=== PATIENT | female | born 1990 | race African-American/Black ===

== ENCOUNTER 2019-01-18 02:05 | Inpatient (IN) | payer OTHER ==
[2019-01-18] MEDS: ELECTROLYTE-148 SOLN 1,000 ML IV SCH ×2 (02:30→07:00)
[2019-01-18 02:41] VITALS: BMI 22.8
[2019-01-18] MEDS ORDERED: BUTORPHANOL TARTRATE 1 MG/ML VIAL IVPUSH ONE (02:52)
[2019-01-18] MEDS ORDERED: PROMETHAZINE HCL 25 MG/1 ML VIAL IVPUSH ONE (02:52)
--- NOTE | 2019-01-18 02:55 | PN ---
Progress Note (short form) - Note Progress Note: cx 2 cm, 80. vx -3 mr, clear, fhr cat 1, regular contraction, wants , aware of risks
--- NOTE | 2019-01-18 03:08 | HP ---
Past Medical History - Primary Care Physician PCP:: Janusz Kemp - Admission Chief Complaint: 38 weeks, previous c/s, rom, labor , request of History of Present Illness: 28 yo f ,one previous c/s for spinal bifida 38.4 weeks, c/o rom, clear fluid with contraction, cx 2 cm 80 vx -3 mr, fhr cat 1, regular contraction, requesting , risks of has been discussed with patient,repeat c/s also discussed History Source: Patient Limitations to Obtaining History: No Limitations - Past Medical History ...: 2 ...Para: 1 ...Term: 1 ...: 0 ...Spon : 0 ...Induced : 0 ...Multiple Gestation: 0 ...LMP: 04/21/18 ... Weeks Gestation by Dates: 38.6 ...EDC by Dates: 01/26/19 ...EDC by Sono: 01/28/19 Additional OB History: previous c/s for NTD - Past Surgical History Hx Myomectomy: No Hx Transabdominal Cerclage: No - Smoking History Smoking history: Never smoked Have you smoked in the past 12 months: No - Alcohol/Substance Use Hx Alcohol Use: No - Social History Usual Living Arrangement: Yes: With Spouse History of Recent Travel: No Home Medications - Allergies Allergies/Adverse Reactions: Allergies Allergy/AdvReac Type Severity Reaction Status Date / Time Gadolinium-Containing Allergy Intermediate Cough Verified 01/18/19 02:23 Contrast Medi - Home Medications Home Medications: Ambulatory Orders Folic Acid 1 mg PO DAILY 01/14/19 Vitamins (Sjr) - 1 tab PO DAILY 01/14/19 Physical Exam - Maternity Vital Signs: Vital Signs Temperature 98.5 F 01/18/19 02:29 Pulse Rate 84 01/18/19 02:29 Respiratory Rate 20 01/18/19 02:29 Blood Pressure 127/71 01/18/19 02:29 O2 Sat by Pulse Oximetry (%) Constitutional: Yes: Well Nourished, No Distress, Calm Eyes: Yes: WNL, Conjunctiva Clear, EOM Intact HENT: Yes: WNL, Atraumatic, Normocephalic Neck: Yes: WNL, Supple, Trachea Midline Cardiovascular: Yes: WNL, Regular Rate and Rhythm Breast(s): Yes: WNL - Abdominal Exam/OB Contractions: Yes Regularity: Irregular Monitor Mode: External Heart Rate Location: LLQ Accelerations: Uniform Decelerations: None - Vaginal Exam/OB Vaginal Bleediing: No Speculum Exam: No Dilatation (cm): 2 cm Effacement (%): 80 Amniotic Membrane Status: Ruptured Nitrazine Test: Positive Amniotic Fluid: Yes: Clear Presentation: Vertex/Position Station: -3 - Physical Exam Musculoskeletal: Yes: WNL Extremities: Yes: WNL Edema: LLE: Trace, RLE: Trace Deep Tendon Reflex Grade: Normal +2 Psychiatric: Yes: WNL Hemorrhage Risk Assessment - Risk Factors Medium Risk Factors: Yes: Prior , uterine surgery,or multiple laparotomies Risk Score: 1 Risk Level: Medium Risk Problem List - Problems (1) with 38 completed weeks gestation Code(s): Z3A.38 - 38 WEEKS GESTATION OF (2) Previous section Code(s): Z98.891 - HISTORY OF UTERINE SCAR FROM PREVIOUS SURGERY (3) Previous section complicating Code(s): O34.219 - MATERNAL CARE FOR UNSP TYPE SCAR FROM PREVIOUS DEL (4) Desires (vaginal after ) trial Code(s): O34.219 - MATERNAL CARE FOR UNSP TYPE SCAR FROM PREVIOUS DEL Assessment/Plan admit [facility] pain management discussed with patient
[2019-01-18] MEDS ORDERED: PROMETHAZINE HCL 25 MG/1 ML VIAL ONE (03:12)
[2019-01-18] MEDS ORDERED: BUTORPHANOL TARTRATE 1 MG/ML VIAL ONE ×2 (03:12)
[2019-01-18 03:17] LABS: INR 0.89 (0.83-1.09); PROTHROMBIN TIME (PATIENT) 10.5 SEC (9.7-13.0)
[2019-01-18 03:20] LABS: ACTIVATED PTT 23.5 SECONDS (25.2-36.5)
[2019-01-18 03:24] LABS: BASO % 0.5 % (0-2.0); EOS % 0.4 % (0-4.5); HEMATOCRIT 34.5 % (32.4-45.2); HEMOGLOBIN 12.2 GM/dL (10.7-15.3); LYMPH % 22.1 % (8-40); MCH 31.4 pg (25.7-33.7); MCHC 35.4 g/dl (32.0-36.0); MEAN CELL VOLUME 88.7 fl (80-96); MEAN PLT VOLUME 9.3 fl (7.5-11.1); MONO % 8.7 % (3.8-10.2); NEUT % 68.3 % (42.8-82.8); PLATELET COUNT 204 K/MM3 (134-434); RBC 3.89 M/mm3 (3.60-5.2); RDW 13.9 % (11.6-15.6); WHITE BLOOD COUNT 12.5 K/mm3 (4.0-10.0)
[2019-01-18 03:29] LABS: ANION GAP 8 MMOL/L (8-16); BLOOD UREA NITROGEN 7 mg/dL (7-18); CALCIUM 8.7 mg/dL (8.5-10.1); CHLORIDE 106 mmol/L (98-107); CO2 24 mmol/L (21-32); CREATININE 0.5 mg/dL (0.55-1.3); GLUCOSE,RANDOM 88 mg/dL (74-106); SODIUM 137 mmol/L (136-145)
[2019-01-18] MEDS ORDERED: TUBERCULIN PPD 5 TU/0.1ML SYRINGE (IN PATIENT USE ONLY) ID ONE (06:30)
[2019-01-18 06:36] LABS: POTASSIUM 4.3 mmol/L (3.5-5.1)
--- NOTE | 2019-01-18 08:41 | PN ---
Progress Note (short form) - Note Progress Note: cx 2 cm ,80 , vx -3 , mr, fhr cat 1, contraction regular, Problem List - Problems (1) with 38 completed weeks gestation Code(s): Z3A.38 - 38 WEEKS GESTATION OF (2) Previous section Code(s): Z98.891 - HISTORY OF UTERINE SCAR FROM PREVIOUS SURGERY (3) Previous section complicating Code(s): O34.219 - MATERNAL CARE FOR UNSP TYPE SCAR FROM PREVIOUS DEL (4) Desires (vaginal after ) trial Code(s): O34.219 - MATERNAL CARE FOR UNSP TYPE SCAR FROM PREVIOUS DEL
--- NOTE | 2019-01-18 08:59 | PN ---
Progress Note (short form) - Note Progress Note: cx 2 cm, 80 ,vx -3 mr, fhr cat 1, declined to cont. with , requesting c/s , risks of repeat c/s discussed Problem List - Problems (1) with 38 completed weeks gestation Code(s): Z3A.38 - 38 WEEKS GESTATION OF (2) Previous section Code(s): Z98.891 - HISTORY OF UTERINE SCAR FROM PREVIOUS SURGERY (3) Previous section complicating Code(s): O34.219 - MATERNAL CARE FOR UNSP TYPE SCAR FROM PREVIOUS DEL (4) Desires (vaginal after ) trial Code(s): O34.219 - MATERNAL CARE FOR UNSP TYPE SCAR FROM PREVIOUS DEL
[2019-01-18] MEDS ORDERED: CITRIC ACID/SODIUM CITRATE 30 ML UNIT-DOSE CUP PO ONE (09:06)
[2019-01-18] MEDS ORDERED: ONDANSETRON 4 MG/2 ML VIAL IVPUSH PRN (09:16)
[2019-01-18] MEDS ORDERED: morphine SULFATE/Preservative Free 0.5 MG/ML (1cc Syringe) EP ONE (09:16)
[2019-01-18] MEDS ORDERED: ceFAZolin SODIUM 1 GM VIAL ONE (09:28)
[2019-01-18] MEDS ORDERED: BENZOCAINE 20% 57 GM BOTTLE TP PRN (09:44)
[2019-01-18] MEDS ORDERED: BENZOCAINE 28 GM HEMORRHOIDAL OINTMENT PR PRN (09:44)
[2019-01-18] MEDS ORDERED: IBUPROFEN 800 MG/8 ML IJ IVPB PRN (09:44)
[2019-01-18] MEDS ORDERED: METHYLERGONOVINE MALEATE 0.2 MG/1 ML AMP IM PRN (09:44)
[2019-01-18] MEDS ORDERED: diphenhydrAMINE HCL 25 MG CAPSULE (FP) PO PRN (09:44)
[2019-01-18] MEDS ORDERED: WITCH HAZEL 50% (TUCKS) 40 PAD/JAR PAD TP PRN (09:44)
[2019-01-18] MEDS ORDERED: OXYTOCIN 20 UNITS in 0.9% NS 20 UNIT/1,000 ML INFUS.BAG IV SCH ×2 (09:45→10:45)
[2019-01-18] MEDS ORDERED: OXYTOCIN 10 UNITS/ML VIAL ONE (09:51)
[2019-01-18] MEDS ORDERED: MEPERIDINE HCL CARPU-JECT 25 MG/1 ML DISP.SYRIN ONE (10:05)
[2019-01-18 10:33] LABS: ARTERIAL BLD GAS O2 SATURATION 40.9 % (90-98.9); ARTERIAL BLOOD GAS BASE EXCESS 0.3 meq/l (-2-2); ARTERIAL BLOOD GAS PCO2 57.1 mmHg (35-45); ARTERIAL BLOOD GAS pH 7.3 (7.35-7.45)
[2019-01-18 10:51] LABS: VENOUS PC02 42.5 mmHg (38-52); VENOUS PH 7.37 (7.32-7.42)
[2019-01-18 11:14] LABS: ARTERIAL BLOOD GAS PO2 21.9 mmHg (80-100)
[2019-01-18] MEDS: CEFAZOLIN 1 GM/D5W 1 GM/50 ML BAG IVPB SCH ×2 (11:48→17:38)
[2019-01-18] MEDS: DEXTROSE 5%-LACTATED RINGERS 1,000 ML IV SCH (11:49)
[2019-01-18] MEDS: IBUPROFEN 800 MG/8 ML IJ IVPB PRN ×2 (11:50→18:21)
[2019-01-18] MEDS ORDERED: IBUPROFEN 800 MG/8 ML IJ IVPB ONE (11:51)
--- NOTE | 2019-01-18 13:53 | OP ---
DATE OF OPERATION: 01/18/2019 PREOPERATIVE DIAGNOSES: at 38 weeks, ruptured membrane, labor, previous section, failed vaginal after . POSTOPERATIVE DIAGNOSES: at 38 weeks, ruptured membrane, labor, previous section, failed vaginal after . PROCEDURE: Repeat low-segment transverse section. SURGEON: Janusz Kemp MD HAND GLOVE CLEANER: RIAZ Palacios ANESTHESIA: Spinal. ANESTHESIOLOGIST: Marcell Cabezas MD ESTIMATED BLOOD LOSS: 500 mL. FINDING: A live baby boy, 9 and 9, ROT position. OPERATION: Patient was taken to operating room on adequate spinal anesthesia. Abdomen and perineum was prepped and draped. Pfannenstiel abdominal skin incision was made. Abdominal wall was cut layer by layer until peritoneum was exposed and incised. Upon entering the abdominal cavity, lower uterine segment was identified and uterovesical fold of peritoneum established. Bladder was pushed down. Then low transverse uterine incision was made, incision extended laterally. Amniotic sac was entered, clear fluid. Head delivered from right occiput transverse position. Nasopharynx was suctioned. Live baby boy was delivered without any difficulty. Placenta was delivered manually. Uterine cavity was cleaned of all remaining tissue. Uterine incision was closed in 2 layers, 1st layer with 0 Biosyn continuous suture, the 2nd layer with 0 Biosyn imbricating the 1st layer. There was a small amount of bleeding at the left incision angle, which hemostasis was established by putting a 2-0 Biosyn ligature suture. Pelvic cavity several times irrigated and no active bleeding was seen. Bladder flap was closed with 0 Biosyn continuous suture. Both tubes and ovaries were checked, were normal. No active bleeding was seen. All the lap, sponge, and instrument count were correct. Peritoneum was closed with 0 Biosyn continuous suture. Muscles were brought together with interrupted suture of 0 Biosyn. Fascia was closed with 0 Biosyn continuous suture, subcutaneous fat with interrupted suture of 0 Biosyn, and the skin was closed with mallorie. Patient tolerated procedure well, left the OR in good condition. Anthony [id number]
[2019-01-19] MEDS: DEXTROSE 5%-LACTATED RINGERS 1,000 ML IV SCH (03:31)
[2019-01-19] MEDS: IBUPROFEN 600 MG TABLET (FP) PO PRN ×4 (07:10→23:02)
[2019-01-19] MEDS: SIMETHICONE 80 MG TAB.CHEW (FP) PO PRN ×4 (07:10→23:01)
[2019-01-19] MEDS: oxyCODONE HCL 5 MG TABLET PO PRN ×4 (07:11→23:01)
--- NOTE | 2019-01-19 08:00 | PN ---
Progress Note (short form) - Note Progress Note: pod 1, s/p c/s , has mild cramps, no excess vaginal bleeding Last Vital Signs Temp Pulse Resp BP Pulse Ox 98.6 F 82 18 107/62 100 01/19/19 06:00 01/19/19 06:00 01/19/19 06:00 01/19/19 06:00 01/18/19 11:35 abdomen soft, no distension, no cva uterus firm, lochia mild no calf tenderness ipression pod 1 doing well plan ambulate,cbc , pain management Problem List - Problems (1) with 38 completed weeks gestation Code(s): Z3A.38 - 38 WEEKS GESTATION OF (2) Previous section Code(s): Z98.891 - HISTORY OF UTERINE SCAR FROM PREVIOUS SURGERY (3) Previous section complicating Code(s): O34.219 - MATERNAL CARE FOR UNSP TYPE SCAR FROM PREVIOUS DEL (4) Desires (vaginal after ) trial Code(s): O34.219 - MATERNAL CARE FOR UNSP TYPE SCAR FROM PREVIOUS DEL
[2019-01-19 08:25] LABS: BASO % 0.2 % (0-2.0); EOS % 0.5 % (0-4.5); HEMATOCRIT 28.9 % (32.4-45.2); HEMOGLOBIN 9.9 GM/dL (10.7-15.3); LYMPH % 14.5 % (8-40); MCH 30.7 pg (25.7-33.7); MCHC 34.3 g/dl (32.0-36.0); MEAN CELL VOLUME 89.5 fl (80-96); MEAN PLT VOLUME 8.4 fl (7.5-11.1); MONO % 5.8 % (3.8-10.2); PLATELET COUNT 181 K/MM3 (134-434); RBC 3.23 M/mm3 (3.60-5.2); RDW 13.9 % (11.6-15.6); WHITE BLOOD COUNT 11.8 K/mm3 (4.0-10.0)
[2019-01-19] MEDS ORDERED: BISACODYL 10 MG SUPP.RECT RC PRN (09:44)
[2019-01-19] MEDS: ENOXAPARIN NA (PORCINE) 40 MG/0.4 ML DISP.SYRIN SQ SCH (10:51)
--- NOTE | 2019-01-19 11:16 | DS ---
Physical Exam-RESIDENTIAL ENERGY AUDITOR Vital Signs: Vital Signs Temperature 99.1 F 01/19/19 09:38 Pulse Rate 80 01/19/19 09:38 Respiratory Rate 18 01/19/19 10:00 Blood Pressure 94/52 L 01/19/19 09:38 O2 Sat by Pulse Oximetry (%) 100 01/18/19 11:35 Constitutional: Yes: Well Nourished, No Distress, Calm Eyes: Yes: WNL, Conjunctiva Clear, EOM Intact HENT: Yes: WNL, Atraumatic, Normocephalic Neck: Yes: WNL, Supple, Trachea Midline Cardiovascular: Yes: WNL, Regular Rate and Rhythm Respiratory: Yes: WNL, Regular, CTA Bilaterally Gastrointestinal: Yes: WNL ...Rectal Exam: Yes: WNL Renal/: Yes: WNL ....Post : Yes: Uterus firm, Uterus non-tender, Slight lochia rubra Breast(s): Yes: WNL Musculoskeletal: Yes: WNL Extremities: Yes: WNL Integumentary: Yes: WNL Wound/Incision: Yes: Clean/Dry, Well Approximated, [place] Intact Neurological: Yes: WNL, Alert, Oriented ...Motor Strength: WNL Psychiatric: Yes: WNL, Alert, Oriented Labs: CBC, BMP 01/19/19 07:30 01/18/19 02:24 Delivery - Delivery Section: Repeat (no complication failed ), Low Flap Transverse Type of Anesthesia: Spinal Episiotomy/Laceration: None EBL (cc): 500 Delivery, Single - Stages of Labor Date 1st Stage Initiatied: 01/18/19 Time 1st Stage Initiated: 01:00 Date of Delivery: 01/18/19 Time of Delivery: 09:56 Time Placenta Delivered: 09:57 Placenta: Yes: Expressed - Condition of Roller Inspector/Social Welfare Clerk Present: Yes Name: Benito Rondon Gender: Male Weight: 6 lb 8 oz Position: Right, OT Total Hours ROM (Hrs/Mins): [id number] - 1 Minute Total Score: 9 5 Minutes Total Score: 9 - Feeding Plan Initial Plan: Exclusive throughout hospitalization Discharge Summary Reason For Visit: LABOR Current Active Problems Desires (vaginal after ) trial (Acute) with 38 completed weeks gestation (Acute) Previous section (Acute) Previous section complicating (Acute) Procedures: Principal: repeat LST c/s Hospital Course: no complication - Instructions - Home Medications Comprehensive Discharge Medication List: Ambulatory Orders Folic Acid 1 mg PO DAILY 01/14/19 Vitamins (Sjr) - 1 tab PO DAILY 01/14/19
[2019-01-20] MEDS: oxyCODONE HCL 5 MG TABLET PO PRN ×3 (05:27→19:17)
[2019-01-20] MEDS: IBUPROFEN 600 MG TABLET (FP) PO PRN ×2 (05:28→19:18)
[2019-01-20] MEDS: SIMETHICONE 80 MG TAB.CHEW (FP) PO PRN ×3 (05:29→19:20)
--- NOTE | 2019-01-20 07:19 | PN ---
Post Progress Note - Subjective Subjective: No acute complains feels incisional pain, but no n/v + flatus, tolerating PO ambulating, breast feeding Post Day: 2 Type of Delivery: Repeat C/S Vital Signs: Vital Signs Temperature 98.6 F 01/19/19 22:00 Pulse Rate 72 01/19/19 22:00 Respiratory Rate 18 01/19/19 22:00 Blood Pressure 105/44 L 01/19/19 22:00 O2 Sat by Pulse Oximetry (%) 100 01/18/19 11:35 Breast Exam: Yes: Soft Uterus: Yes: Fundus Firm Incision: Yes: Dressing dry and intact Abdomen/GI: Yes: Abdomen soft Lochia: Yes: Rubra Lochia, amount: Small Extremities: Yes: Calves non-tender Perineum: Yes: Intact Activity: Ambulating - Labs Labs: CBC WBC 11.8 K/mm3 (4.0-10.0) H 01/19/19 07:30 RBC 3.23 M/mm3 (3.60-5.2) L 01/19/19 07:30 Hgb 9.9 GM/dL (10.7-15.3) L 01/19/19 07:30 Hct 28.9 % (32.4-45.2) L D 01/19/19 07:30 MCV 89.5 fl (80-96) 01/19/19 07:30 MCH 30.7 pg (25.7-33.7) 01/19/19 07:30 MCHC 34.3 g/dl (32.0-36.0) 01/19/19 07:30 RDW 13.9 % (11.6-15.6) 01/19/19 07:30 Plt Count 181 K/MM3 (134-434) 01/19/19 07:30 MPV 8.4 fl (7.5-11.1) 01/19/19 07:30 Absolute Neuts (auto) 9.3 K/mm3 (1.5-8.0) H 01/19/19 07:30 Neutrophils % 79.0 % (42.8-82.8) 01/19/19 07:30 Lymphocytes % 14.5 % (8-40) D 01/19/19 07:30 Monocytes % 5.8 % (3.8-10.2) 01/19/19 07:30 Eosinophils % 0.5 % (0-4.5) 01/19/19 07:30 Basophils % 0.2 % (0-2.0) 01/19/19 07:30 Nucleated RBC % 0 % (0-0) 01/19/19 07:30 Assessment/Plan 28yo P2 s/p Repeat c/section for failure to dilate VSS, Afebrile h/h stable, WBC downward trend Baby boy circumcised cont. routine PP care Plan to D/C 01/21/19
--- NOTE | 2019-01-20 09:04 | PN ---
Progress Note (short form) - Note Progress Note: Anesthesia postop note 28 y/o F s/p spinal anesthesia, duramorph for postop pain POD#2, aaox3, vss, ambulating, pain well controlled. No anesthesia complications.
[2019-01-20] MEDS: ENOXAPARIN NA (PORCINE) 40 MG/0.4 ML DISP.SYRIN SQ SCH (09:09)
[2019-01-20] MEDS: ACETAMINOPHEN 325 MG TABLET (FP) PO PRN ×2 (12:13→19:17)
[2019-01-20] MEDS ORDERED: SENNOSIDES/DOCUSATE COMBO (SENNA PLUS) TABLET (UD) PO PRN (22:00)
[2019-01-21] MEDS: ACETAMINOPHEN 325 MG TABLET (FP) PO PRN (07:08)
[2019-01-21] MEDS: IBUPROFEN 600 MG TABLET (FP) PO PRN (07:09)
[2019-01-21] MEDS: oxyCODONE HCL 5 MG TABLET PO PRN (07:09)
[2019-01-21] MEDS: SIMETHICONE 80 MG TAB.CHEW (FP) PO PRN (07:10)
[2019-01-21 07:42] LABS: BASO % 0.2 % (0-2.0); EOS % 2.1 % (0-4.5); HEMATOCRIT 26.6 % (32.4-45.2); HEMOGLOBIN 9.3 GM/dL (10.7-15.3); LYMPH % 25.8 % (8-40); MEAN CELL VOLUME 88.5 fl (80-96); MONO % 6.5 % (3.8-10.2); NEUT % 65.4 % (42.8-82.8); PLATELET COUNT 216 K/MM3 (134-434); RBC 3.01 M/mm3 (3.60-5.2); RDW 14.1 % (11.6-15.6); WHITE BLOOD COUNT 7.4 K/mm3 (4.0-10.0)
--- NOTE | 2019-01-21 10:12 | PN ---
Progress Note (short form) - Note Progress Note: pod 3 doing well, no c/o, voids ok, had BM CBC, BMP 01/21/19 06:10 01/18/19 02:24 abdomen soft, no distension, no cva incision dry, clean, healing well all mallorie removed no calf tenderness plan d/c home, follow up office 1 week Problem List - Problems (1) with 38 completed weeks gestation Code(s): Z3A.38 - 38 WEEKS GESTATION OF (2) Previous section Code(s): Z98.891 - HISTORY OF UTERINE SCAR FROM PREVIOUS SURGERY (3) Previous section complicating Code(s): O34.219 - MATERNAL CARE FOR UNSP TYPE SCAR FROM PREVIOUS DEL (4) Desires (vaginal after ) trial Code(s): O34.219 - MATERNAL CARE FOR UNSP TYPE SCAR FROM PREVIOUS DEL
[2019-01-21] MEDS: ENOXAPARIN NA (PORCINE) 40 MG/0.4 ML DISP.SYRIN SQ SCH (11:31)
[2019-01-21 13:18] VITALS: BP 121/54; PULSE 90; TEMP 98.3
[2019-01-21 14:08] LABS: ANISOCYTOSIS 0; HELMET CELLS 0; HOWELL-JOLLY BODIES 0; MACROCYTOSIS 0; OVALOCYTE 0; PLATELET ESTIMATE NORMAL; ROULEAU 0; SICKELED CELLS 0; TARGET CELLS 0; TEAR DROP CELLS 0; TOXIC GRANULATION 0
--- NOTE | 2019-01-26 15:35 | PATH ---
Surgical Pathology Report Patient Name: GERDA SPIVEY [facility]. Rec. #: [id number] /Age/Gender: 1990 (Age: 28) / F Account: [id number] Location: [facility] OBS/MATERIALS PLANNING ANALYST Taken: 01/18/2019 Received: 01/20/2019 Reported: 01/26/2019 Physicians: Janusz Kemp M.D. Specimen(s) Received PLACENTA Clinical History , 38.4 weeks, failed History of right ovarian cyst Final Diagnosis PLACENTA: THIRD TRIMESTER PLACENTA WITH ACUTE CHORIOAMNIONITIS. TRIVASCULAR CORD WITH ACUTE FUNISITIS. Electronically Signed Jasper Solis M.D. Gross Description The specimen is received fresh labeled placenta and is a 420 gram, 18.5 x 15.5 x 2.4 cm. placenta with attached membranes and umbilical cord. The attached membranes are mccarty, translucent with focal opacities and insert marginally. The umbilical cord measures 12 cm. in length and averages 1.3 cm. in diameter. The cord inserts centrally. No true knots or strictures are identified. Cut surface of the umbilical cord reveals 3 vessels. The surface is manzaon-blue with minimal fibrin deposition and appropriate caliber vessels. The maternal surface is red-brown with focal defects. Sectioning reveals red-brown, spongy parenchyma. No lesions are identified. Tipple Supervisor sections are submitted in three cassettes as follows: 1- membrane rolls and umbilical cord; 2-3- full thickness sections of placenta. 01/23/2019 [facility]01/23/2019
== END 2019-01-21 14:45 | disposition home or self-care (01) | DRG 540 ==
LOC: JLDR 02:05 → J3W 12:33
PROVIDERS: ADMIT Obstetrics & Gynecology; ATTEND Obstetrics & Gynecology
PROC: 10D00Z1 Extraction of Products of Conception, Low, Open Approach (ICD-10-PCS; principal; 2019-01-18)
DX: O34.211 Maternal care for low transverse scar from previous cesarean delivery (principal); N85.8 Other specified noninflammatory disorders of uterus; O62.0 Primary inadequate contractions; Z3A.38 38 weeks gestation of pregnancy; Z37.0 Single live birth
CPT/HCPCS: 36415; 36600; 80048; 82803; 85025; 85610; 85730; 86593; 86850; 86900; 86901; 88307-TC